=== PATIENT | female | born 1985 | race African-American/Black ===

== ENCOUNTER → 2017-03-26 | Outpatient (REF) | payer OTHER ==
[2017-03-26 18:29] LABS: FREE T4 1.21 NG/DL (0.76-1.46)
[2017-03-27 09:52] LABS: THYROID PEROXIDASE ANTIBODY < 28.0 U/ML (<60.0)
== END ==
LOC: M SFHCLERA 13:29
PROVIDERS: ATTEND Physician Assistant
DX: E01.0 Iodine-deficiency related diffuse (endemic) goiter (principal)

== ENCOUNTER → 2017-04-02 | Outpatient (CLI) | payer OTHER ==
--- NOTE | 2017-04-03 04:19 | REP ---
Clinical: Enlarged thyroid gland by physical examination. Technique: Real time jc scale and color evaluation using curved array transducer and linear high frequency transducer. Findings: The thyroid gland is normal in contour, size, echogenicity and overall appearance. Vascularity appears normal. No cystic or nodular components are identified. Right lobe measures 4.4 x 1.6 x 1.8 cm. Left lobe measures 4.6 x 1.7 x 1.2 cm. Isthmus measures 4 mm. Impression: Normal thyroid gland. Signed by Erickson Pierre MD 04/03/2017 04:10 A
== END ==
LOC: M LRY 09:00
PROVIDERS: ATTEND Physician Assistant
DX: E01.0 Iodine-deficiency related diffuse (endemic) goiter (principal)

== ENCOUNTER 2017-05-09 19:45 | Emergency (ER) | payer OTHER ==
[~2017-05-09] VITALS: Ht 154.9 cm; Wt 76.3 kg
[2017-05-09] MEDS ORDERED: EPIN0.3I6 IJ (19:59)
[2017-05-09] MEDS ORDERED: FAMOTIDINE IV BAG 40 MG in APPROPRIATE DILUENT 1 EA IV ONE (20:30)
[2017-05-09] MEDS ORDERED: diphenhydrAMINE INJ 50MG/ML VIAL (J1200) IV ONE (20:30)
[2017-05-09 20:50] LABS: BASO % 0.5 % (0.0-1.0); EOS # 0.5 K/mm3 (0.0-0.50); EOS % 4.4 % (0.0-3.0); LARGE UNSTAINED CELL # 0.2 K/mm3 (0.0-0.4); LARGE UNSTAINED CELL % 1.8 % (0.0-4.0); LYMPH # 3.5 K/mm3 (1.5-4.5); LYMPH % 32.2 % (24.0-44.0); MEAN CORPUSCULAR HEMOGLOBIN 29.3 pg (27.0-33.0); MEAN CORPUSCULAR HGB CONC 32.7 g/dl (32.0-36.5); MEAN CORPUSCULAR VOLUME 89.6 fl (80.0-96.0); MONO # 0.4 K/mm3 (0.0-0.8); MONO % 3.4 % (0.0-5.0); NEUTROPHILS # 5.9 K/mm3 (1.8-7.7); NEUTROPHILS % 57.7 % (36.0-66.0); PLATELET COUNT, AUTOMATED 219 k/mm3 (150-450); RED CELL DISTRIBUTION WIDTH 13.3 % (11.5-14.5); WHITE BLOOD COUNT 10.3 K/mm3 (4.0-10.0)
[2017-05-09 21:05] LABS: ANION GAP 6 MEQ/L (8-16); BLOOD UREA NITROGEN 10 MG/DL (7-18); CALCIUM LEVEL 8.2 MG/DL (8.5-10.1); CARBON DIOXIDE LEVEL 25 MEQ/L (21-32); CHLORIDE LEVEL 111 MEQ/L (98-107); CREATININE FOR GFR 0.76 MG/DL (0.55-1.02); GLOMERULAR FILTRATION RATE > 60.0 (>60); GLUCOSE, FASTING 106 MG/DL (70-105); POTASSIUM SERUM 3.7 MEQ/L (3.5-5.1); SODIUM LEVEL 142 MEQ/L (136-145)
[2017-05-10 00:03] VITALS: BP 100/72
--- NOTE | 2017-05-10 08:57 | REP ---
Portable chest: Single view. History: Dyspnea and cough. Comparison study: No comparison study. Findings: The lungs are well inflated and clear. Pleural angles are sharp. Heart size is normal. No significant bony abnormality is seen. Impression: Negative portable chest x-ray. Signed by Eleazar Deleon MD 05/10/2017 08:49 A
--- NOTE | 2017-05-12 08:34 | ECGEPIP ---
Stationary ECG Study [facility] - ED Test Date: 2017-05-09 Pat Name: BI NG Department: Room: - Gender: F Agriculture Consultant: tk : [id number] Requested By: NAPOLEON Lomeli Order Number: [id number] Reading MD: Jolynn Wagner Measurements Intervals [place] Rate: 73 P: 54 SD: 155 QRS: 59 QRSD: 89 T: 59 QT: 399 QTc: 441 Interpretive Statements SINUS RHYTHM WITH FREQUENT VENTRICULAR PREMATURE COMPLEXES ABNORMAL RHYTHM ECG NO PRIOR FOR COMPARISON Electronically Signed On 05-12-2017 8:34:12 EDT by Jolynn Wagner
== END 2017-05-10 00:27 | disposition home or self-care (01) ==
LOC: EDBD 19:45 → M ED 20:51
DX: I49.3 Ventricular premature depolarization (principal); T63.441A Toxic effect of venom of bees, accidental (unintentional), initial encounter; X58.XXXA Exposure to other specified factors, initial encounter; Y92.9 Unspecified place or not applicable; Y93.9 Activity, unspecified; Y99.9 Unspecified external cause status; Z91.030 Bee allergy status; E28.2 Polycystic ovarian syndrome; N80.9 Endometriosis, unspecified; Z85.41 Personal history of malignant neoplasm of cervix uteri; Z90.49 Acquired absence of other specified parts of digestive tract; F17.200 Nicotine dependence, unspecified, uncomplicated

== ENCOUNTER → 2019-01-21 | Outpatient (REF) | payer OTHER ==
[~2019-01-21] MED LIST: EPIN0.3I11 IJ
== END ==
LOC: M SFHCLERA 15:42
PROVIDERS: ATTEND Nurse Practitioner Family
DX: R53.81 Other malaise (principal)

== ENCOUNTER 2019-06-10 17:21 | Emergency (ER) | payer OTHER ==
[~2019-06-10] VITALS: Ht 157.5 cm; Wt 76.4 kg
[2019-06-10 17:21] VITALS: BP 133/66
[2019-06-10] MEDS ORDERED: ACET-683 PO (17:25)
== END 2019-06-10 20:45 | disposition left against medical advice (07) ==
LOC: M ED 17:21
DX: Z53.29 Procedure and treatment not carried out because of patient's decision for other reasons (principal)

== ENCOUNTER → 2019-08-26 | Outpatient (REF) | payer OTHER ==
[~2019-08-26] MED LIST changes: +ACET-683 PO
== END ==
LOC: M SFHCLERA 18:12
PROVIDERS: ATTEND Nurse Practitioner Family
DX: R68.89 Other general symptoms and signs (principal)

== ENCOUNTER → 2019-12-14 | Outpatient (REF) | payer OTHER | LOC: M SFHCLERA 14:07 | PROVIDERS: ATTEND Nurse Practitioner Family | DX: R68.89 Other general symptoms and signs (principal) ==

== ENCOUNTER → 2021-06-04 | Outpatient (CLI) | payer OTHER ==
[2021-06-04 15:17] LABS: HEMATOCRIT 45.1 % (36.0-47.0); HEMOGLOBIN 14.2 g/dl (12.0-15.5); MEAN CORPUSCULAR HEMOGLOBIN 27.8 pg (27.0-33.0); MEAN CORPUSCULAR HGB CONC 31.5 g/dl (32.0-36.5); MEAN CORPUSCULAR VOLUME 88.4 fl (80.0-96.0); PLATELET COUNT, AUTOMATED 280 10^3/uL (150-450); WHITE BLOOD COUNT 14.1 10^3/uL (4.0-10.0)
[2021-06-04 15:52] LABS: ALBUMIN 3.7 GM/DL (3.2-5.2); ALT/SGPT 76 U/L (12-78); BILIRUBIN,TOTAL 0.2 MG/DL (0.2-1.0); BLOOD UREA NITROGEN 7 MG/DL (7-18); CALCIUM LEVEL 8.8 MG/DL (8.5-10.1); CARBON DIOXIDE LEVEL 27 MEQ/L (21-32); CHLORIDE LEVEL 108 MEQ/L (98-107); CHOLESTEROL LEVEL 199 MG/DL (<200); CHOLESTEROL RISK RATIO 6.419 (<5); CREATININE FOR GFR 0.75 MG/DL (0.55-1.30); FREE T4 1.19 NG/DL (0.76-1.46); GLOMERULAR FILTRATION RATE > 60.0 (>60); GLUCOSE, FASTING 91 MG/DL (70-100); HDL CHOLESTEROL 31 MG/DL (>40); LDL CHOLESTEROL 135 MG/DL (<100); NON-HDL-C 168 MG/DL; POTASSIUM SERUM 4.6 MEQ/L (3.5-5.1); SODIUM LEVEL 139 MEQ/L (136-145); THYROID STIMULATING HORMONE 0.685 uIU/ML (0.358-3.740); TOTAL PROTEIN 7.6 GM/DL (6.4-8.2); TRIGLYCERIDES LEVEL 166 MG/DL (<150)
[2021-06-04 15:55] LABS: FOLATE 5.3 NG/ML (>5.4); TOTAL 25(OH) VITAMIN D 13.8 NG/ML (30.0-100.0); VITAMIN B12 LEVEL 272 PG/ML (247-911)
[2021-06-04 15:59] LABS: ATYPICAL LYMPH 19 % (0-5); EOSINOPHILS 5 % (0-3); LYMPHOCYTES 23 % (16-44); MONOCYTES 6 % (0-5); NEUTROPHILS 47 % (28-66); PLATELET ESTIMATE NORMAL (NORMAL)
[2021-06-08 05:08] LABS: HOMOCYST(E)INE SERUM 37.8 umol/L (0.0-14.5)
== END ==
LOC: M LAB 14:46
PROVIDERS: ATTEND Family Medicine
DX: E53.8 Deficiency of other specified B group vitamins (principal)

== ENCOUNTER → 2021-08-20 | Outpatient (CLI) | payer OTHER ==
[2021-08-20 08:36] LABS: BASO # 0.1 10^3/uL (0.0-0.2); BASO % 0.6 % (0.0-1.0); EOS # 0.6 10^3/uL (0.0-0.5); EOS % 4.8 % (0.0-3.0); HEMATOCRIT 43.9 % (36.0-47.0); HEMOGLOBIN 14.1 g/dl (12.0-15.5); LYMPH # 5.6 10^3/uL (1.5-5.0); LYMPH % 43.5 % (24.0-44.0); MEAN CORPUSCULAR HEMOGLOBIN 27.7 pg (27.0-33.0); MEAN CORPUSCULAR HGB CONC 32.1 g/dl (32.0-36.5); MEAN CORPUSCULAR VOLUME 86.2 fl (80.0-96.0); MONO # 1.1 10^3/uL (0.0-0.8); MONO % 8.6 % (2.0-8.0); NEUTROPHILS # 5.4 10^3/uL (1.5-8.5); NEUTROPHILS % 42.1 % (36.0-66.0); PLATELET COUNT, AUTOMATED 249 10^3/uL (150-450); RED BLOOD COUNT 5.09 10^6/uL (4.00-5.40); WHITE BLOOD COUNT 12.9 10^3/uL (4.0-10.0)
[2021-08-20 08:58] LABS: ALBUMIN 3.6 GM/DL (3.2-5.2); ALT/SGPT 39 U/L (12-78); BILIRUBIN,TOTAL 0.2 MG/DL (0.2-1.0); BLOOD UREA NITROGEN 8 MG/DL (7-18); CARBON DIOXIDE LEVEL 27 MEQ/L (21-32); CHLORIDE LEVEL 109 MEQ/L (98-107); CREATININE FOR GFR 0.79 MG/DL (0.55-1.30); GLOMERULAR FILTRATION RATE > 60.0 (>60); GLUCOSE, FASTING 95 MG/DL (70-100); POTASSIUM SERUM 4.5 MEQ/L (3.5-5.1); SODIUM LEVEL 140 MEQ/L (136-145); TOTAL PROTEIN 7.1 GM/DL (6.4-8.2)
[2021-08-20 09:11] LABS: VITAMIN B12 LEVEL 367 PG/ML (247-911)
--- NOTE | 2021-08-20 09:29 | REP ---
INDICATION: UMESH LOW BACK PAIN, RIGHT FOOT PAIN LABS FIRST. COMPARISON: None. TECHNIQUE: Four views each foot FINDINGS: The joint spaces are symmetric and relatively well maintained. There is no evidence of acute fracture or destructive osseous lesion. IMPRESSION: Negative. <Electronically signed by Danny Akbar > 08/20/21 0977
--- NOTE | 2021-08-20 09:36 | REP ---
INDICATION: UMESH LOW BACK PAIN, RIGHT FOOT PAIN LABS FIRST. COMPARISON: None TECHNIQUE: Multiple views of the lumbosacral spine with flexion and extension bending views FINDINGS: Multiple views of the lumbosacral spine show no acute fracture, dislocation, or subluxation. The intervertebral disc spaces are symmetric and well maintained. There is no spondylolysis or spondylolisthesis. The pedicles are intact bilaterally and there is no destructive osseous lesion. Flexion and extension bending views show no instability. IMPRESSION: Essentially unremarkable lumbosacral spine series. <Electronically signed by Danny Akbar > 08/20/21 0971
== END ==
LOC: M LAB 07:52
PROVIDERS: ATTEND Family Medicine
DX: R74.8 Abnormal levels of other serum enzymes (principal)

== ENCOUNTER 2022-03-24 21:02 | Emergency (ER) | payer OTHER, SELFPAY ==
[~2022-03-24] VITALS: Ht 154.9 cm; Wt 65.5 kg
[~2022-03-24 21:02] MED LIST changes: +METR-265 PO; +PROP20TA72 PO; +VITA1CAP25 PO
[2022-03-25] MEDS ORDERED: RALTEGRAVIR 400 MG TAB (ISENTRESS) PO SCH
[2022-03-25] MEDS ORDERED: TRUVADA 200MG/300MG TABLET PO SCH
[2022-03-25] MEDS ORDERED: ULIPRISTAL ACETATE 30 MG TAB (ELLA) PO ONE (00:15)
[2022-03-25] MEDS ORDERED: HEPATITIS B VACCINE 20MCG/ML 1ML SYRINGE (ADULT DOSE) IM ONE (00:20)
[2022-03-25] MEDS ORDERED: EXPOSURE KIT-ADULT 7 DAY SUPPLY PO ONE (00:20)
[2022-03-25] MEDS ORDERED: DOXY-342 PO (00:20)
[2022-03-25] MEDS ORDERED: EMTR1TAB16 PO (00:20)
[2022-03-25] MEDS ORDERED: BOOSTRIX/ADACEL VACCINE (DIPHTH/PERTUSS/ACELL/TETANUS) 0.5ML SYR IM ONE (00:20)
[2022-03-25] MEDS ORDERED: RALT40TA PO (00:20)
[2022-03-25] MEDS ORDERED: TRUVADA 200MG/300MG TABLET PO ONE (01:00)
[2022-03-25] MEDS ORDERED: RALTEGRAVIR 400 MG TAB (ISENTRESS) PO ONE (01:00)
[2022-03-25 01:17] LABS: BASO # 0.1 10^3/uL (0.0-0.2); BASO % 0.4 % (0.0-1.0); EOS # 0.3 10^3/uL (0.0-0.5); EOS % 2.6 % (0.0-3.0); HEMATOCRIT 41.7 % (36.0-47.0); HEMOGLOBIN 13.4 g/dl (12.0-15.5); LYMPH # 5.5 10^3/uL (1.5-5.0); MEAN CORPUSCULAR HEMOGLOBIN 29.1 pg (27.0-33.0); MEAN CORPUSCULAR HGB CONC 32.1 g/dl (32.0-36.5); MEAN CORPUSCULAR VOLUME 90.7 fl (80.0-96.0); MONO # 0.8 10^3/uL (0.0-0.8); MONO % 6.2 % (2.0-8.0); NEUTROPHILS # 5.5 10^3/uL (1.5-8.5); NEUTROPHILS % 45.4 % (36.0-66.0); PLATELET COUNT, AUTOMATED 233 10^3/uL (150-450); WHITE BLOOD COUNT 12.2 10^3/uL (4.0-10.0)
[2022-03-25 02:13] VITALS: BP 111/75
[2022-03-25 02:41] LABS: HCG, SERUM QUALITATIVE NEGATIVE (NEGATIVE)
[2022-03-25 02:54] LABS: GC DNA AMPLIFICATION NEGATIVE (NEGATIVE)
[2022-03-25 09:01] LABS: HEPATITIS B SURFACE ANTIBODY POSITIVE (POSITIVE); HEPATITIS C VIRUS ABY INDEX 0.1 INDEX (<0.8)
== END 2022-03-25 02:32 | disposition home or self-care (01) ==
LOC: M ED 21:02
DX: T74.21XA Adult sexual abuse, confirmed, initial encounter (principal); Y07.59 Other non-family member, perpetrator of maltreatment and neglect; Y92.9 Unspecified place or not applicable; Y93.9 Activity, unspecified; Y99.9 Unspecified external cause status; F17.200 Nicotine dependence, unspecified, uncomplicated; F12.10 Cannabis abuse, uncomplicated

== ENCOUNTER → 2022-07-21 | Outpatient (CLI) | payer OTHER ==
[~2022-07-21] MED LIST changes: +DOXY-342 PO; +EMTR1TAB16 PO; +RALT40TA PO
== END ==
LOC: M WHC 14:54
PROVIDERS: ATTEND Internal Medicine
DX: D72.829 Elevated white blood cell count, unspecified (principal)

== ENCOUNTER → 2023-09-29 | Outpatient (CLI) | payer OTHER ==
[~2023-09-29] MED LIST changes: -DOXY-342 PO; +DOXY100C82 PO
== END ==
LOC: M LAB 07:11
PROVIDERS: ATTEND Obstetrics & Gynecology
DX: Z34.93 Encounter for supervision of normal pregnancy, unspecified, third trimester (principal)

== ENCOUNTER 2023-10-13 15:39 | Outpatient (CLI) | payer OTHER ==
[~2023-10-13] VITALS: Ht 157.5 cm; Wt 78.6 kg
[2023-10-13] MEDS ORDERED: PRENTAB9 PO (16:01)
[2023-10-13] MEDS ORDERED: D3 M1CAP2 PO (16:01)
[2023-10-13 16:02] VITALS: BP 114/73
== END 2023-10-13 16:40 | disposition home or self-care (01) ==
LOC: M LDO 15:39
PROVIDERS: ATTEND Obstetrics & Gynecology
DX: O47.03 False labor before 37 completed weeks of gestation, third trimester (principal); O09.523 Supervision of elderly multigravida, third trimester; O32.1XX9 Maternal care for breech presentation, other fetus; Z3A.34 34 weeks gestation of pregnancy
CPT/HCPCS: 59025; 76815; G0463

== ENCOUNTER → 2023-10-28 | Outpatient (REF) | payer OTHER ==
[~2023-10-28] MED LIST changes: +D3 M1CAP2 PO; +PRENTAB9 PO
== END ==
LOC: M PLALAB 10:49
PROVIDERS: ATTEND Obstetrics & Gynecology
DX: Z36.89 Encounter for other specified antenatal screening (principal); Z3A.36 36 weeks gestation of pregnancy

== ENCOUNTER 2023-11-10 22:45 | Outpatient (CLI) | payer OTHER ==
[~2023-11-10] VITALS: Ht 157.5 cm; Wt 82.1 kg
[2023-11-10 22:55] VITALS: BP 123/69
== END 2023-11-11 02:35 | disposition home or self-care (01) ==
LOC: M LDO 22:45
PROVIDERS: ATTEND Specialist
DX: O47.1 False labor at or after 37 completed weeks of gestation (principal); O09.523 Supervision of elderly multigravida, third trimester; Z3A.38 38 weeks gestation of pregnancy
CPT/HCPCS: 59025; G0463

== ENCOUNTER → 2024-06-09 | Outpatient (REF) | payer MEDICAID, OTHER ==
[2024-06-14 14:57] LABS: HPV APTIMA Not Detected (Not Detected)
== END ==
LOC: M SFHCWAGY 17:30
PROVIDERS: ATTEND Nurse Practitioner Family
DX: Z12.4 Encounter for screening for malignant neoplasm of cervix (principal)

== ENCOUNTER → 2024-08-04 | Outpatient (CLI) | payer OTHER | LOC: M RAD 10:38 | PROVIDERS: ATTEND Physician Assistant | DX: M67.431 Ganglion, right wrist (principal) ==

== ENCOUNTER → 2024-10-07 | Outpatient (REF) | payer OTHER | LOC: M SFHCLERA 11:14 | PROVIDERS: ATTEND Physician Assistant | DX: R20.0 Anesthesia of skin (principal); G43.919 Migraine, unspecified, intractable, without status migrainosus ==

== ENCOUNTER → 2024-11-14 | Outpatient (CLI) | payer OTHER ==
[2024-11-14 15:02] LABS: BASO # 0.1 10^3/uL (0.0-0.2); BASO % 0.4 % (0.0-1.0); EOS # 0.1 10^3/uL (0.0-0.5); EOS % 0.9 % (0.0-3.0); HEMATOCRIT 46.9 % (36.0-47.0); HEMOGLOBIN 15.1 g/dl (12.0-15.5); LYMPH # 4.8 10^3/uL (1.5-5.0); LYMPH % 42.8 % (24.0-44.0); MEAN CORPUSCULAR HEMOGLOBIN 27.7 pg (27.0-33.0); MEAN CORPUSCULAR HGB CONC 32.2 g/dl (32.0-36.5); MEAN CORPUSCULAR VOLUME 86.1 fl (80.0-96.0); MONO # 0.7 10^3/uL (0.0-0.8); MONO % 6.3 % (2.0-8.0); NEUTROPHILS # 5.5 10^3/uL (1.5-8.5); NEUTROPHILS % 49.1 % (36.0-66.0); PLATELET COUNT, AUTOMATED 290 10^3/uL (150-450); RED BLOOD COUNT 5.45 10^6/uL (4.00-5.40); WHITE BLOOD COUNT 11.3 10^3/uL (4.0-10.0)
[2024-11-14 15:30] LABS: ALBUMIN 3.8 G/DL (3.2-5.2); ALKALINE PHOSPHATASE 94 U/L (35-104); ALT/SGPT 23 U/L (7.0-40); AST/SGOT 15 U/L (<34); BILIRUBIN,TOTAL 0.6 MG/DL (0.3-1.2); BLOOD UREA NITROGEN 8 MG/DL (9-23); CALCIUM LEVEL 9.6 MG/DL (8.5-10.1); CARBON DIOXIDE LEVEL 26 MMOL/L (20-31); CHLORIDE LEVEL 107 MMOL/L (98-107); CREATININE FOR GFR 0.95 MG/DL (0.55-1.30); GLOMERULAR FILTRATION RATE > 60.0 (>60); GLUCOSE, FASTING 90 MG/DL (60-100); MAGNESIUM LEVEL 1.7 MG/DL (1.8-2.4); SODIUM LEVEL 141 MMOL/L (136-145); TOTAL PROTEIN 7.8 G/DL (5.7-8.2)
[2024-11-14 15:32] LABS: THYROID STIMULATING HORMONE 0.509 uIU/ML (0.55-4.78); VITAMIN B12 LEVEL 311 PG/ML (211-911)
[2024-11-17 19:57] LABS: Methylmalonic Acid 153 nmol/L (55-335)
== END ==
LOC: M LAB 14:11
PROVIDERS: ATTEND Physician Assistant
DX: R20.0 Anesthesia of skin (principal); G43.919 Migraine, unspecified, intractable, without status migrainosus

== ENCOUNTER → 2024-11-14 | Outpatient (CLI) | payer OTHER ==
[2024-11-14 15:17] LABS: BASO # 0.1 10^3/uL (0.0-0.2); BASO % 0.4 % (0.0-1.0); EOS # 0.1 10^3/uL (0.0-0.5); EOS % 0.9 % (0.0-3.0); HEMATOCRIT 46.1 % (36.0-47.0); HEMOGLOBIN 14.8 g/dl (12.0-15.5); LYMPH # 5.2 10^3/uL (1.5-5.0); LYMPH % 44.1 % (24.0-44.0); MEAN CORPUSCULAR HEMOGLOBIN 27.5 pg (27.0-33.0); MEAN CORPUSCULAR HGB CONC 32.1 g/dl (32.0-36.5); MEAN CORPUSCULAR VOLUME 85.5 fl (80.0-96.0); MONO # 0.7 10^3/uL (0.0-0.8); MONO % 6.2 % (2.0-8.0); NEUTROPHILS # 5.6 10^3/uL (1.5-8.5); PLATELET COUNT, AUTOMATED 313 10^3/uL (150-450); RED BLOOD COUNT 5.39 10^6/uL (4.00-5.40); WHITE BLOOD COUNT 11.7 10^3/uL (4.0-10.0)
[2024-11-14 15:42] LABS: RHEUMATOID FACTOR QUANT < 3.5 IU/ML (<14)
[2024-11-14 15:43] LABS: ALBUMIN 3.8 G/DL (3.2-5.2); ALKALINE PHOSPHATASE 93 U/L (35-104); ALT/SGPT 21 U/L (7.0-40); AST/SGOT 14 U/L (<34); BILIRUBIN,TOTAL 0.5 MG/DL (0.3-1.2); BLOOD UREA NITROGEN 9 MG/DL (9-23); CALCIUM LEVEL 9.5 MG/DL (8.5-10.1); CARBON DIOXIDE LEVEL 26 MMOL/L (20-31); CHLORIDE LEVEL 105 MMOL/L (98-107); CREATININE FOR GFR 0.93 MG/DL (0.55-1.30); ERYTHROCYTE SEDIMENTATION RATE 57 mm/hr (0-20); GLOMERULAR FILTRATION RATE > 60.0 (>60); GLUCOSE, FASTING 89 MG/DL (60-100); SODIUM LEVEL 140 MMOL/L (136-145); TOTAL PROTEIN 7.9 G/DL (5.7-8.2)
[2024-11-14 15:45] LABS: THYROID STIMULATING HORMONE 0.481 uIU/ML (0.55-4.78); VITAMIN B12 LEVEL 273 PG/ML (211-911)
[2024-11-15 23:38] LABS: T P ELECTROPHORESIS SO 7.6 g/dL (6.1-8.1)
[2024-11-17 08:17] LABS: ANA SCREEN, IFA NEGATIVE (NEGATIVE)
[2024-11-18 06:38] LABS: ALBUMIN SPEP 4.3 g/dL (3.8-4.8); ALPHA-1-GLOBULINS SO 0.3 g/dL (0.2-0.3); ALPHA-2-GLOBULINS SO 0.8 g/dL (0.5-0.9); BETA 2 GLOBULIN 0.5 g/dL (0.2-0.5); BETA-GLOBULIN SO 0.5 g/dL (0.4-0.6); GAMMA GLOBULINS SO 1.2 g/dL (0.8-1.7)
[2024-11-19 17:39] LABS: VITAMIN E(ALPHA TOCOPHEROL) 9.3 mg/L (5.7-19.9); VITAMIN E(GAMMA TOCOPHEROL) 1.2 mg/L (<=4.3)
== END ==
LOC: M LAB 14:13
PROVIDERS: ATTEND Psychiatry & Neurology Neurology
DX: G62.9 Polyneuropathy, unspecified (principal)

== ENCOUNTER 2025-11-06 07:14 | Day surgery (SDC) | payer MEDICAID, OTHER ==
[~2025-11-06] VITALS: Ht 157.5 cm; Wt 84.6 kg
[~2025-11-06 07:14] MED LIST changes: +DOXY-442 PO; -DOXY100C82 PO; +LIDOCAINE 2% 100 MG/5 ML SDV (FOR ANES.) As Ordered ONE; +MIDAZOLAM INJ 2 MG/2 ML VIAL As Ordered ONE
[2025-11-06] MEDS ORDERED: dexAMETHasone 4 MG/ML 1 ML VIAL As Ordered ONE (08:23)
[2025-11-06] MEDS ORDERED: ONDANSETRON 4MG/2ML VIAL As Ordered ONE (08:23)
[2025-11-06] MEDS ORDERED: KETOROLAC 30 MG/ML 1 ML VIAL As Ordered ONE (08:23)
[2025-11-06] MEDS ORDERED: HYDROMORPHONE HCL 0.5 MG/0.5 ML SYRINGE IV PRN (08:35)
[2025-11-06] MEDS ORDERED: LR 1,000 ML IV SCH (08:35)
[2025-11-06] MEDS ORDERED: ONDANSETRON 4MG/2ML VIAL IV PRN (08:35)
[2025-11-06 09:50] VITALS: BP 122/69; TEMP 97.2; O2SAT 97
== END 2025-11-06 10:45 | disposition home or self-care (01) ==
LOC: M SDC 07:14
PROVIDERS: ATTEND Orthopaedic Surgery Hand Surgery
DX: G56.01 Carpal tunnel syndrome, right upper limb (principal); F17.290 Nicotine dependence, other tobacco product, uncomplicated; E04.9 Nontoxic goiter, unspecified; Z85.41 Personal history of malignant neoplasm of cervix uteri; Z90.49 Acquired absence of other specified parts of digestive tract
CPT/HCPCS: 29848; 81025; J0665; J1100; J1885; J2250; J2405; J3010